=== PATIENT | female | born 1965 | race Two or more races ===

== ENCOUNTER 2020-04-07 13:07 | Emergency (ER) | payer BC ==
[~2020-04-07] VITALS: Ht 149.9 cm; Wt 72.6 kg
[~2020-04-07 13:07] MED LIST: CIPRO500 MG PO; DUEXIS 800-26.1 EACH PO; TYLENOL650 MG/20. ORAL; VASCEPA1 GM PO; VITAMIN D1000 UNI1 ORAL
[2020-04-07 13:15] VITALS: BP 142/91
[2020-04-07] MEDS ORDERED: Metoclopramide 10mg/2ml Inj IVP ONE (13:30)
[2020-04-07] MEDS ORDERED: Ketorolac 30mg Inj IM ONE (13:30)
[2020-04-07] MEDS ORDERED: Omnipaque-300 100ml vial INJ PRN (13:30)
[2020-04-07 13:38] LABS: BASOPHILS % (AUTO) 0.8 % (0.0-2.0); EOSINOPHILS % (AUTO) 0.5 % (0.0-3.0); HEMATOCRIT 43.4 % (37.0-47.0); HEMOGLOBIN 14.6 G/DL (12.0-16.0); LYMPHOCYTES % (AUTO) 20.3 % (20.0-45.0); MEAN CORPUSCULAR VOLUME 84 FL (80-99); MONOCYTES % (AUTO) 5.6 % (1.0-10.0); NEUTROPHILS % (AUTO) 72.8 % (45.0-75.0); PLATELET COUNT 245 K/UL (150-450); RED BLOOD COUNT 5.19 M/UL (4.20-5.40); RED CELL DISTRIBUTION WIDTH 12.4 % (11.6-14.8); WHITE BLOOD COUNT 10.4 K/UL (4.8-10.8)
[2020-04-07 13:43] LABS: APPEARANCE,URINE CLEAR; BILIRUBIN, URINE NEGATIVE (NEGATIVE); COLOR,URINE PALE YELLOW; GLUCOSE, URINE (UA) NEGATIVE (NEGATIVE); KETONES,URINE NEGATIVE (NEGATIVE); LEUKOCYTE ESTERASE ,URINE 2+ (NEGATIVE); NITRITE,URINE NEGATIVE (NEGATIVE); PH,URINE 6.5 (4.5-8.0); PROTEIN,URINE NEGATIVE (NEGATIVE); UROBILINOGEN,URINE NORMAL MG/DL (0.0-1.0)
[2020-04-07 13:49] LABS: ANION GAP 8 mmol/L (5-15); BLOOD UREA NITROGEN 13 mg/dL (7-18); CALCIUM 9.3 MG/DL (8.5-10.1); CARBON DIOXIDE 29 MMOL/L (21-32); CHLORIDE 102 MMOL/L (98-107); CREATININE 0.8 MG/DL (0.55-1.30); POTASSIUM 3.3 MMOL/L (3.5-5.1); SODIUM 139 MMOL/L (136-145)
--- NOTE | 2020-04-07 13:51 | Emergency Room Report ---
History of Present Illness General Chief Complaint: Headache Source: Patient Present Illness HPI 55-year-old female with no no signal past medical history here complaining of 1 day of 10 out of 10 epigastric abdominal pain, multiple bouts of nonbloody emesis and nausea. Denies any diarrhea or constipation. Also reports that she had a new onset headache that starts in forehead and radiates to the posterior n gordy at the same time. Rates the headache 10. Denies any dizziness, blurry vision, photophobia. Denies any head injury. Denies any history of hypertension, diabetes. Reports that the abdominal pain started after eating and she had also received an unknown injection earlier that day for weight loss. Denies any bloody emesis, no blood in stool, any urinary symptoms. 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 No unilateral generalized weakness noted. Is neurovascularly intact Allergies: Coded Allergies: No Known Allergies (Unverified , 05/24/16) COVID-19 Screening Contact w/high risk pt: No Experienced COVID-19 symptoms?: No COVID-19 Testing performed LOGISTICS CENTER MANAGER: No Patient History Past Medical History: see triage record Past Surgical History: none Pertinent Family History: none Last Menstrual Period: na Now: No Reviewed Nursing Documentation: PMH: Agreed; PSxH: Agreed Nursing Documentation-PMH Past Medical History: No History, Except For Hx Cardiac Problems: Yes Hx Cancer: No Hx Gastrointestinal Problems: Yes Hx Neurological Problems: No Review of Systems All Other Systems: negative except mentioned in HPI Physical Exam Vital Signs Date Time Temp Pulse Resp B/P (MAP) Pulse Ox O2 Delivery O2 Flow Rate FiO2 04/07/20 13:12 98.2 80 19 142/91 (108) 97 Room Air Sp02 EP Interpretation: reviewed, normal General Appearance: alert, GCS 15, non-toxic, mild distress Head: normocephalic, atraumatic Eyes: bilateral eye normal inspection, bilateral eye PERRL ENT: hearing grossly normal, normal pharynx, no angioedema, normal voice Neck: full range of motion, supple/symm/no masses Respiratory: chest non-tender, lungs clear, normal breath sounds, no rhonchi, no respiratory distress, speaking full sentences Cardiovascular #1: regular rate, rhythm, no edema Cardiovascular #2: 2+ carotid (R), 2+ carotid (L), 2+ radial (R), 2+ radial (L), 2+ dorsalis pedis (R), 2+ dorsalis pedis (L) Gastrointestinal: non tender, soft, no mass, no organomegaly, no peritonitis, no bruit, no guarding, no hernia, no pulsatile mass, no rebound Rectal: deferred Genitourinary: no CVA tenderness Musculoskeletal: back normal, no calf tenderness Neurologic: alert, motor strength/tone normal, oriented x3, sensory intact, responsive, speech normal Psychiatric: judgement/insight normal, memory normal, mood/affect normal, no suicidal/homicidal ideation Skin: no rash Lymphatic: no adenopathy Medical Decision Making PA Attestation All diagnoses and treatment plans were reviewed and discussed with my supervising physician Dr. Cueva Diagnostic Impression: Primary Impression: Abdominal pain Additional Impressions: Headache Diverticulosis ER Course 55-year-old female with no no signal past medical history here complaining of 1 day of 10 out of 10 epigastric abdominal pain, multiple bouts of nonbloody emesis and nausea. Denies any diarrhea or constipation. Also reports that she had a new onset headache that starts in forehead and radiates to the posterior neck at the same time. Rates the headache 10. Denies any dizziness, blurry vision, photophobia. Denies any head injury. Denies any history of hypertension, diabetes. Reports that the abdominal pain started after eating and she had also received an unknown injection earlier that day for weight loss. Denies any bloody emesis, no blood in stool, any urinary symptoms. Denies tobacco smoke, alcohol intake, drug use. No unilateral generalized weakness noted. Is neurovascularly intact Ddx considered but are not limited to: appendicitis, cholecystis, gastritis, gastroenteritis, UTI, pyelonephritis, SBO, diverticulitis, influenza with GI manifestation, SD, CVA, TIA, tension headache Vital signs: are WNL, pt. is afebrile H&PE are most consistent with: abdominal pain, headache ORDERS: abdominal CT, abdominal pain set, EKG, head CT no contrast, zofran, pepcid, dicyclomin, excederin ED INTERVENTIONS: NS bolus, Reglan, Toradol DISCHARGE: At this time pt. is stable for d/c to home. Will provide printed patient care instructions, and any necessary prescriptions. Care plan and follow up instructions have been discussed with the patient prior to discharge. Take medication as directed, follow-up with your primary care provider return to the emergency room Chest X-Ray Diagnostic Results Chest X-Ray Diagnostic Results : Chest X-Ray Ordered: Yes # of Views/Limited/Complete: 1 View Indication: Other EP Interpretation: Yes PA Xray: Interpretation reviewed, by supervising MD, and agrees with findings. Interpretation: no consolidation, no effusion, no pneumothorax Impression: No acute disease Electronically Signed by: Garrett Reed PA-C CT/MRI/US Diagnostic Results CT/MRI/US Diagnostic Results #1: Imaging Test Ordered: Head CT no contrast Impression No intracranial bleed, CT/MRI/US Diagnostic Results #2: Imaging Test Ordered: CT abdomen pelvis with contrast Impression Diverticulosis without diverticulitis Last Vital Signs Date Time Temp Pulse Resp B/P (MAP) Pulse Ox O2 Delivery O2 Flow Rate FiO2 04/07/20 13:15 98.2 80 19 142/91 97 Room Air Disposition: HOME, SELF-CARE Condition: Stable Patient Instructions: Abdominal Pain, Adult, [id number], General Headache Without Cause Additional Instructions: Take medication as directed, follow-up with your primary care provider return to the emergency room Garrett Boo Apr 07, 2020 13:51
[2020-04-07 13:53] LABS: ALANINE AMINOTRANSFERASE 26 U/L (12-78); ALBUMIN 3.9 G/DL (3.4-5.0); ALBUMIN/GLOBULIN RATIO 1.1 (1.0-2.7); ALKALINE PHOSPHATASE 93 U/L (46-116); ASPARTATE AMINO TRANSFERASE 18 U/L (15-37); BILIRUBIN,TOTAL 0.7 MG/DL (0.2-1.0)
--- NOTE | 2020-04-07 14:13 | Diagnostic Imaging Report ---
CT HEAD WITHOUT CONTRAST INDICATION: Reason For Exam: DIZZY Technique: Continuous helical CT scanning of the head was performed without intravenous contrast material. Axial and coronal 5 mm sections were generated. Radiation dose was minimized using automated exposure control DOSE: Total Dose Length Product - DLP 1018.[address] Dose Index - CTDIvol(s) 53.4 mGy. COMPARISON: None available FINDINGS: There is no acute intracranial hemorrhage, mass effect or cortical edema. The ventricles, cisterns and sulci are normal for age. Mastoid air cells are clear. Right greater than left mild maxillary sinus mucosal thickening. No focal lesions of the bony calvarium or soft tissues of the scalp are seen. IMPRESSION: No evidence of acute intracranial hemorrhage, mass effect or cortical edema. MRI may be obtained for more sensitive evaluation as clinically indicated. The CT scanner at [facility] is accredited by the [employer] and the scans are performed using protocols designed to limit radiation exposure to as low as reasonably achievable to attain images of sufficient resolution adequate for diagnostic evaluation.
--- NOTE | 2020-04-07 14:15 | Diagnostic Imaging Report ---
Indication: Reason For Exam: PAIN Technique: Single AP view of the chest. Comparison: Same day CT abdomen and pelvis. Findings: Heart is mildly enlarged when accounting for projection and technique. No airspace consolidation. Mild pulmonary vascular congestion. No pneumothorax or pleural effusion. No acute osseous abnormality. IMPRESSION: 1. Mild cardiomegaly. 2. Pulmonary vascular congestion without airspace consolidation.
--- NOTE | 2020-04-07 14:46 | Diagnostic Imaging Report ---
CT ABDOMEN AND PELVIS WITH CONTRAST INDICATION: Abdominal pain TECHNIQUE: Continuous helical transaxial imaging of the abdomen and pelvis was obtained from the lung bases to the pubic symphysis during intravenous contrast administration. Coronal 2-D reformats were also obtained. Study obtained in a Siemens sensation [address] Automatic Exposure Control was utilized. Total Dose length Product (DLP): 476.[address] Dose Index Volume (CTDIvol): 8.9 mGy COMPARISON: None FINDINGS: Lower chest:: Unremarkable. Hepatobiliary:: Status post cholecystectomy. Genitourinary:: Urinary bladder is decompressed, limiting evaluation. No hydronephrosis or nephrolithiasis. Adrenals:: Unremarkable. Pancreas:: Unremarkable. Gastrointestinal:: No evidence of obstruction. Appendix is normal. Scattered colonic diverticulosis without evidence of acute diverticulitis. Spleen: : Unremarkable. Peritoneum:: Unremarkable. Bones and soft tissues:: Coarse calcification is noted in the right breast tissue. There are multilevel discogenic degenerative changes of the visualized spine. IMPRESSION: Colonic diverticulosis without evidence of acute diverticulitis. Otherwise, no acute findings in the abdomen or pelvis. The CT scanner at [facility] is accredited by the [employer] and the scans are performed using protocols designed to limit radiation exposure to as low as reasonably achievable to attain images of sufficient resolution adequate for diagnostic evaluation.
[2020-04-07] MEDS ORDERED: EXCEDRIN EXTRA1 EAC1 PO (14:56)
[2020-04-07] MEDS ORDERED: ZOFRAN4 M1 ORAL (14:56)
[2020-04-07] MEDS ORDERED: FAMOTIDINE20 MG ORAL (14:56)
[2020-04-07] MEDS ORDERED: DICYCLOMINE HCL10 MG ORAL (14:56)
[2020-04-07 15:03] VITALS: BP 133/82
== END 2020-04-07 15:03 | disposition home or self-care (01) ==
LOC: EMR 13:46 → MERGE 13:46 → EMR 15:03
DX: R10.13 Epigastric pain (principal); R51.9 Headache, unspecified; K57.90 Diverticulosis of intestine, part unspecified, without perforation or abscess without bleeding; I51.9 Heart disease, unspecified
CPT/HCPCS: 36415; 70450; 71045; 74177; 80053; 80307; 81003; 83690; 84484; 85025; 85610; 85730; 93005; 96361; 96372; 96374; 99284; G0480; J1885; J2765; J7030; Q9965